=== PATIENT | female | born 1955 | race Caucasian/White ===

== ENCOUNTER 2017-04-25 16:27 | Emergency (ER) | payer OTHER ==
[~2017-04-25] VITALS: Ht 167.6 cm; Wt 89.5 kg
[~2017-04-25 16:27] MED LIST: AMOX500T2 PO; LORT5TAB PO; Z.0.NO CURRENT MEDS
[2017-04-25 16:31] VITALS: BP 179/88; PULSE 108; RESP 15; TEMP 98.2; O2SAT 97
[2017-04-25] MEDS ORDERED: HYDR25TA5 PO (16:53)
--- NOTE | 2017-04-25 16:54 | PD ---
HPI Chief Complaint: Back/ Neck Pain or Injury Time Seen by Provider: 16:35 Travel History International Travel<30 days: No Contact w/Intl Traveler<30days: No Traveled to known affect area: No History of Present Illness HPI 62-year-old female complains of low back pain low abdominal pain and left leg pain. Patient states that she was getting out of a car yesterday and started having pain. Patient states the pain is aching pain with sharp pain on movement and on bending over. Patient states that she has low abdominal aching pain also. Patient states the pain radiates down to posterior aspect the left leg. Patient denies any focal weakness or numbness in lower extremity. Patient denies any bladder or bowel control. Patient denies any history of back injury. Patient denies any dysuria or frequency. Patient denies any vaginal discharge or bleeding. Patient denies any nausea vomiting diarrhea. Patient was seen at local urgent care center today and referred to ED for evaluation. PFSH Past Medical History Anxiety: Yes Menopausal: Yes Past Surgical History Abdominal Surgery: Yes ("TUMMY TUCK") Social History Alcohol Use: Yes (OCCASIOANL) Tobacco Use: Yes (1 PPD) Substance Use: No Allergies-Medications (Allergen,Severity, Reaction): Coded Allergies: Sulfa (Sulfonamide Antibiotics) (Unverified Adverse Reaction, Intermediate , NAUSEA/VOMITING, 04/25/17) codeine (Unverified Adverse Reaction, Intermediate, NAUSEA AND VOMITING, ) Reported Meds & Prescriptions Reported Meds & Active Scripts Active Reported Hydrochlorothiazide 25 Mg Tab 25 Mg PO BID PRN Review of Systems General / Constitutional: No: Fever Eyes: No: Visual changes HENT: No: Headaches Cardiovascular: No: Chest Pain or Discomfort Respiratory: No: Shortness of Breath Gastrointestinal: Positive: Abdominal Pain Genitourinary: No: Dysuria Musculoskeletal: No: Pain Skin: No Rash Neurologic: No: Weakness Psychiatric: No: Depression Endocrine: No: Polydipsia Hematologic/Lymphatic: No: Easy Bruising Physical Exam Narrative GENERAL: Well-nourished, well-developed patient. SKIN: Focused skin assessment warm/dry. HEAD: Normocephalic. EYES: No scleral icterus. No injection or drainage. NECK: Supple, trachea midline. No JVD or lymphadenopathy. CARDIOVASCULAR: Regular rate and rhythm without murmurs, gallops, or rubs. RESPIRATORY: Breath sounds equal bilaterally. No accessory muscle use. GASTROINTESTINAL: Abdomen soft, nondistended. Mild tenderness to palpation lower abdomen. No rebound tenderness. No mass. MUSCULOSKELETAL: No cyanosis, or edema. Mild tenderness posterior aspect of left thigh. Full range of motion the hip and the knee. BACK: Patient has moderate tenderness and palpation lower lumbar area, without obvious deformity. No CVA tenderness. Negative straight leg raising. Neurologic exam normal. Data Data Last Documented VS Vital Signs Date Time Temp Pulse Resp B/P (MAP) Pulse Ox O2 Delivery O2 Flow Rate FiO2 04/25/17 16:31 98.2 108 15 179/88 (118) 97 Orders Orders Complete Blood Count With Diff (04/25/17 16:42) Comprehensive Metabolic Panel (04/25/17 16:42) Prothrombin Time / Inr (Pt) (04/25/17 16:42) Act Partial Throm Time (Ptt) (04/25/17 16:42) Lipase (04/25/17 16:42) Urinalysis - C+S If Indicated (04/25/17 16:42) Ct Abd/Pel W Iv Contrast(Rout) (04/25/17 16:42) Iv Access Insert/Monitor (04/25/17 16:42) Ecg Monitoring (04/25/17 16:42) Oximetry (04/25/17 16:42) Us Leg Venous Doppler (04/25/17 16:42) Ct Lumb Spine W/O Contrast (04/25/17 16:42) Iohexol 350 Inj (Omnipaque 350 Inj) (04/25/17 18:15) Labs Laboratory Tests Test 04/25/17 17:20 White Blood Count 20.9 TH/MM3 Red Blood Count 4.42 MIL/MM3 Hemoglobin 13.4 GM/DL Hematocrit 40.4 % Mean Corpuscular Volume 91.4 FL Mean Corpuscular Hemoglobin 30.4 PG Mean Corpuscular Hemoglobin Concent 33.3 % Red Cell Distribution Width 13.6 % Platelet Count 202 TH/MM3 Mean Platelet Volume 9.6 FL Neutrophils (%) (Auto) 32.7 % Lymphocytes (%) (Auto) 60.9 % Monocytes (%) (Auto) 3.8 % Eosinophils (%) (Auto) 1.6 % Basophils (%) (Auto) 1.0 % Neutrophils # (Auto) 6.8 TH/MM3 Lymphocytes # (Auto) 12.8 TH/MM3 Monocytes # (Auto) 0.8 TH/MM3 Eosinophils # (Auto) 0.3 TH/MM3 Basophils # (Auto) 0.2 TH/MM3 CBC Comment AUTO DIFF Differential Total Cells Counted 88 Neutrophils % (Manual) 31 % Lymphocytes % 61 % Monocytes % 7 % Eosinophils % 1 % Neutrophils # (Manual) 6.5 TH/MM3 Differential Comment FINAL DIFF MANUAL Platelet Estimate NORMAL Platelet Morphology Comment NORMAL Red Cell Morphology Comment NORMAL Prothrombin Time 10.3 SEC Prothromb Time International Ratio 0.9 RATIO Activated Partial Thromboplast Time 22.7 SEC Urine Color YELLOW Urine Turbidity CLEAR Urine pH 5.5 Urine Specific [place] 1.020 Urine Protein NEG mg/dL Urine Glucose (UA) NEG mg/dL Urine Ketones NEG mg/dL Urine Occult Blood NEG Urine Nitrite NEG Urine Bilirubin NEG Urine Leukocyte Esterase NEG Urine RBC 0-3 /hpf Urine WBC 0-2 /hpf Urine Squamous Epithelial Cells 0-5 /hpf Urine Hyaline Casts 0-2 /lpf Microscopic Urinalysis Comment CULT NOT INDICATED Blood Urea Nitrogen 16 MG/DL Creatinine 0.76 MG/DL Random Glucose 151 MG/DL Total Protein 7.6 GM/DL Albumin 3.9 GM/DL Calcium Level 9.6 MG/DL Alkaline Phosphatase 84 U/L Aspartate Amino Transf (AST/SGOT) 32 U/L Alanine Aminotransferase (ALT/SGPT) 71 U/L Total Bilirubin 0.3 MG/DL Sodium Level 135 MEQ/L Potassium Level 3.8 MEQ/L Chloride Level 100 MEQ/L Carbon Dioxide Level 25.6 MEQ/L Anion Gap 9 MEQ/L Estimat Glomerular Filtration Rate 77 ML/MIN Lipase 175 U/L [facility] Medical Decision Making Medical Screen Exam Complete: Yes Emergency Medical Condition: Yes Interpretation(s) 18 12 PM. CBC WBC 20.9. 61 lymphocytes. CMP within normal limit. ALT 71. UA is negative. Differential Diagnosis Differential diagnosis including radiculopathy, fracture, HNP, colitis, UTI, pyelonephritis, nephrolithiasis, DVT. Narrative Course 62-year-old female with low abdominal pain, low back pain, with pain radiation to the left leg. Toradol 30 mg IV. Lortab 5/325, one tablet by mouth given. Diagnosis Primary Impression: Low back pain Qualified Codes: M54.42 - Lumbago with sciatica, left side Additional Impression: Lymphocytosis Patient Instructions: General Instructions Additional Instructions: Take medications as needed for pain. Follow-up with personal physician and nurse emergency. Return if worse. Med/Other Pt SpecificInfo: Prescription(s) given Scripts Hydrocodone-Acetaminophen ([place]) 5-325 mg Tab 1 TAB PO Q6H Y for PAIN, #30 TAB 0 Refills Prov: Galo Cobian MD 04/25/17 Disposition: 01 DISCHARGE HOME Condition: Stable Galo Cobian MD Apr 25, 2017 16:54
[2017-04-25 17:28] LABS: BLOOD, URINE NEG (NEG); GLUCOSE,URINE NEG (NEG); KETONE, URINE NEG (NEG); NITRITE,URINE NEG (NEG); PH, URINE 5.5 (5.0-8.5)
[2017-04-25 17:32] LABS: AUTOMATED NEUTROPHIL # 6.8 TH/MM3 (1.8-7.7); BASOPHIL # 0.2 TH/MM3 (0-0.2); EOSINOPHIL # 0.3 TH/MM3 (0-0.4); EOSINOPHIL % 1.6 % (0.0-4.0); HEMATOCRIT 40.4 % (35.0-46.0); LYMPH % 60.9 % (9.0-44.0); LYMPHOCYTE # 12.8 TH/MM3 (1.0-4.8); MEAN CELL VOLUME 91.4 FL (80.0-100.0); MEAN CORPUSCULAR HEMOGLOBIN 30.4 PG (27.0-34.0); MEAN CORPUSCULAR HGB CONC 33.3 % (32.0-36.0); MONO % 3.8 % (0.0-8.0); NEUT % 32.7 % (16.0-70.0); PLATELET COUNT 202 TH/MM3 (150-450); RED BLOOD COUNT 4.42 MIL/MM3 (4.00-5.30); RED CELL DISTRIBUTION WIDTH 13.6 % (11.6-17.2); WHITE BLOOD COUNT 20.9 TH/MM3 (4.0-11.0)
[2017-04-25 17:33] LABS: HEMO FLAGS AUTO DIFF
[2017-04-25 17:35] LABS: CHLORIDE 100 MEQ/L (98-107); POTASSIUM 3.8 MEQ/L (3.5-5.1); SODIUM (NA) 135 MEQ/L (136-145)
[2017-04-25 17:38] LABS: URINE COLOR YELLOW (YELLW/STRAW)
[2017-04-25 17:39] LABS: ANION GAP 9 MEQ/L (5-15); BICARBONATE 25.6 MEQ/L (21.0-32.0); BLOOD UREA NITROGEN 16 MG/DL (7-18); COMMENT (UR) CULT NOT INDICATED; CULTURE IF INDICATED CULT NOT INDICATED; HYALINE CAST, URINE 0-2 /lpf (RARE); RBC, URINE 0-3 /hpf (0-3); SQUAMOUS EPITHELIAL CELL URINE 0-5 /hpf (0-5); WBC, URINE 0-2 /hpf (0-5)
[2017-04-25 17:42] LABS: ALT (GPT) 71 U/L (10-53); AST (GOT) 32 U/L (15-37); GLOMERULAR FILTRATION RATE 77 ML/MIN (>89)
[2017-04-25 17:43] LABS: TOTAL BILIRUBIN ADULT 0.3 MG/DL (0.2-1.0)
[2017-04-25 17:45] LABS: ALKALINE PHOSPHATASE 84 U/L (45-117)
[2017-04-25 17:51] LABS: APTT (PATIENT) 22.7 SEC (24.3-30.1); INTERNATIONAL NORMALIZED RATIO 0.9 RATIO; PROTHROMBIN TIME - PATIENT 10.3 SEC (9.8-11.6)
[2017-04-25 18:00] LABS: EOSINOPHILS 1 % (0-4); NEUTROPHIL # MANUAL DIFF 6.5 TH/MM3 (1.8-7.7); POLYS (SEG NEUTROPHILS) 31 % (16-70); WBC DIFF SAMPLE 88
[2017-04-25 18:01] LABS: PLATELET ESTIMATE SMEAR NORMAL (NORMAL); PLATELET MORPHOLOGY NORMAL (NORMAL); SCAN/DIFF FINAL DIFF MANUAL
[2017-04-25] MEDS ORDERED: IOHEXOL 350 MG/ML 10 ML VIAL (for RAD DIAG) IVCONTRAST ONE (18:15)
--- NOTE | 2017-04-25 18:25 | RADRPT ---
EXAM DATE/TIME: 04/25/2017 17:58 [facility] COMPARISON: No previous studies available for comparison. INDICATIONS : Lower abdominal pain. IV CONTRAST: 85 cc Omnipaque 350 (iohexol) IV ORAL CONTRAST: No oral contrast ingested. RADIATION DOSE: 19.14 CTDIvol (mGy) MEDICAL HISTORY : None SURGICAL HISTORY : None. ENCOUNTER: Initial ACUITY: 1 day PAIN SCALE: 8/10 LOCATION: Bilateral lower quadrant TECHNIQUE: Volumetric scanning of the abdomen and pelvis was performed. Using automated exposure control and ad justment of the mA and/or kV according to patient size, radiation dose was kept as low as reasonably achievable to obtain optimal diagnostic quality images. DICOM format image data is available electro nically for review and comparison. FINDINGS: Lung bases are clear. Fatty liver. Spleen, adrenals, kidneys and pancreas unremarkable. No gallstones or biliary ductal dilatation. No pelvic masses or free fluid. Colonic diverticulosis without diverticulitis. Small fat containing u mbilical hernia. Fluid attenuation present in the endometrial cavity. CONCLUSION: 1. No acute findings within the abdomen and pelvis. Colonic diverticulosis without diverticulitis. No rmal appendix. Fluid or endometrial thickening in the endometrial cavity. Myron Batista MD on April 25, 2017 at 18:20 Board Certified Radiologist. This report was verified electronically.
--- NOTE | 2017-04-25 18:39 | RADRPT ---
EXAM DATE/TIME: 04/25/2017 17:58 [facility] COMPARISON: No previous studies available for comparison. INDICATIONS : Low back pain. RADIATION DOSE: ; Reconstructed from previous dataset, no dose MEDICAL HISTORY : None SURGICAL HISTORY : None. ENCOUNTER: Initial ACUITY: 1 day PAIN SCALE: 8/10 LOCATION: Lumbar spine. TECHNIQUE: Volumetric scanning of the lumbar spine was performed. Multiplanar reconstructions in the sagittal, coronal and oblique axial planes were performed. Using automated exposure control and adjustment of the mA and/or kV according to patient size, radiation dose was kept as low as reasonably achievable t o obtain optimal diagnostic quality images. DICOM format image data is available electronically for review and comparison. FINDINGS: No acute fracture or spondylolisthesis. Mild posterior disc protrusions at L4-5-S1 with mild encroach ment on the lateral recesses and neural foramina. Mild degenerative disc disease. CONCLUSION: 1. Mild disc protrusions at L4-5-S1. No acute fracture or spondylolisthesis. Myron Batista MD on April 25, 2017 at 18:35 Board Certified Radiologist. This report was verified electronically.
--- NOTE | 2017-04-25 18:55 | RADRPT ---
EXAM DATE/TIME: 04/25/2017 18:20 [facility] COMPARISON: No previous studies available for comparison. INDICATIONS : Left leg pain. MEDICAL HISTORY : Anxiety. Lower back pain. Abdominal pain. Leg edema. SURGICAL HISTORY : Tummy tuck. Left hand and tendon repair. ENCOUNTER: Initial ACUITY: 2 day PAIN SCORE: 8/10 LOCATION: Left leg. TECHNIQUE: Venous ultrasound of the leg was performed from the inguinal ligament to the proximal calf. Real-dylan e, color Doppler and spectral tracing, compression and augmentation techniques were used. FINDINGS: There is normal compressibility of the deep venous system from the inguinal region to the proximal ca lf. No echogenic clot is seen in the lumen of the common femoral, femoral, popliteal, and posterior tibial veins. There is a normal response of the venous system to proximal and distal augmentation an d respiration. CONCLUSION: Normal examination. Myron Batista MD on April 25, 2017 at 18:53 Board Certified Radiologist. This report was verified electronically.
[2017-04-25] MEDS ORDERED: NORC5TAB PO (18:59)
[2017-04-25] MEDS ORDERED: ACETAMINOPHEN/HYDROcodone 325 MG/5 MG TAB PO ONE (19:00)
[2017-04-25] MEDS ORDERED: KETOROLAC TROMETHAMINE 30 MG/ML (IVP) VIAL IV PUSH ONE (19:00)
[2017-04-25 19:08] VITALS: BP 170/88
== END 2017-04-25 19:15 | disposition home or self-care (01) ==
LOC: PHED 16:27
DX: M54.42 Lumbago with sciatica, left side (principal); D72.820 Lymphocytosis (symptomatic); F17.210 Nicotine dependence, cigarettes, uncomplicated
CPT/HCPCS: 72131; 74177; 80053; 81001; 83690; 85007; 85027; 85610; 85730; 93971; 99285; Q9967